=== PATIENT | male | born 1940 | race Caucasian/White ===

== ENCOUNTER 2018-02-11 08:23 | Emergency (ER) | payer MEDICARE ==
[~2018-02-11] VITALS: Ht 170.2 cm; Wt 80.4 kg
[2018-02-11] MEDS ORDERED: ASPIRIN 81 MG TABLET CHEW PO ONE (09:00)
[2018-02-11] MEDS ORDERED: ASPIRIN 81 MG TABLET CHEW ONE (09:00)
[2018-02-11 09:02] VITALS: BP 169/105
[2018-02-11] MEDS ORDERED: SIMV40TA3 PO (09:12)
[2018-02-11] MEDS ORDERED: VALS160T3 PO (09:12)
[2018-02-11] MEDS ORDERED: ASPI-496 PO (09:12)
[2018-02-11] MEDS ORDERED: OMEP-110 PO (09:12)
[2018-02-11] MEDS ORDERED: CLOP75TA PO (09:12)
[2018-02-11] MEDS ORDERED: LEVO125T5 PO (09:12)
[2018-02-11] MEDS ORDERED: BIOT1CAP3 PO (09:12)
[2018-02-11] MEDS ORDERED: CARV25TA12 PO (09:12)
[2018-02-11] MEDS ORDERED: CHOL100011 PO (09:12)
[2018-02-11] MEDS ORDERED: VALS1TAB26 PO (09:12)
[2018-02-11 09:14] LABS: BASOPHILS # (AUTO) 0.01 x10^3/uL (0-0.1); BASOPHILS % (AUTO) 0 % (0-1); EOSINOPHILS # (AUTO) 0.16 x10^3/uL (0-0.4); EOSINOPHILS % (AUTO) 1 % (1-7); LYMPHOCYTES # (AUTO) 1.32 x10^3/uL (1-3.4); LYMPHOCYTES % (AUTO) 12 % (22-44); MD NO; MEAN CORPUSCULAR HEMOGLOBIN 30.5 pg (27.5-34.5); MEAN CORPUSCULAR HGB CONC 34.1 g/dL (33.2-36.2); MEAN CORPUSCULAR VOLUME 89.5 fL (81-97); MEAN PLATELET VOLUME 8.9 fL (7.4-10.4); MONOCYTES # (AUTO) 0.65 x10^3/uL (0.2-0.8); MONOCYTES % (AUTO) 6 % (2-9); NEUTROPHILS # (AUTO) 9.32 x10^3/uL (1.8-6.8); NEUTROPHILS % (AUTO) 81 % (42-75); PLATELET COUNT 196 x10^3/uL (130-400); RED CELL DISTRIBUTION WIDTH 13.2 % (9.4-14.8)
[2018-02-11 09:26] LABS: ALBUMIN 3.8 g/dL (3.4-5.0); ANION GAP 6 mmol/L (5-15); CALCIUM 9.9 mg/dL (8.5-10.1); CHLORIDE 108 mmol/L (98-107); CREATININE 1.26 mg/dL (0.7-1.3)
[2018-02-11 09:30] LABS: TROPONIN I 0.016 ng/mL (0.000-0.045)
[2018-02-11] MEDS ORDERED: FUROSEMIDE 40 MG TABLET PO ONE (10:00)
[2018-02-11] MEDS ORDERED: FUROSEMIDE 40 MG TABLET ONE (10:06)
[2018-02-11] MEDS ORDERED: POTASSIUM CHLORIDE 20 MEQ TAB.ER.PRT ONE (10:07)
[2018-02-11] MEDS ORDERED: POTASSIUM CHLORIDE 20 MEQ TAB.ER.PRT PO ONE (10:30)
== END 2018-02-11 10:27 | disposition home or self-care (01) ==
LOC: ED 10:24
DX: E87.6 Hypokalemia (principal); I50.23 Acute on chronic systolic (congestive) heart failure; E78.5 Hyperlipidemia, unspecified; K21.9 Gastro-esophageal reflux disease without esophagitis; I25.10 Atherosclerotic heart disease of native coronary artery without angina pectoris; I11.0 Hypertensive heart disease with heart failure; Z88.5 Allergy status to narcotic agent; Z95.810 Presence of automatic (implantable) cardiac defibrillator; Z95.1 Presence of aortocoronary bypass graft
CPT/HCPCS: 36415; 71045; 80048; 82040; 83880; 84484; 85025; 93005; 99285